=== PATIENT | female | born 2000 | race American Indian/Alaskan Native ===

== ENCOUNTER 2024-04-13 13:35 | Observation (INO) | payer MEDICAID, OTHER ==
[~2024-04-13] VITALS: Ht 160 cm; Wt 56.0 kg
[2024-04-13] MEDS ORDERED: LACTATED RINGER'S 1,000 ML IV ONE (15:00)
== END 2024-04-13 16:10 | disposition home or self-care (01) ==
LOC: LDRP 13:35
PROVIDERS: ADMIT Obstetrics & Gynecology; ATTEND Obstetrics & Gynecology
DX: O99.283 Endocrine, nutritional and metabolic diseases complicating pregnancy, third trimester (principal); E86.0 Dehydration; O62.9 Abnormality of forces of labor, unspecified; O26.893 Other specified pregnancy related conditions, third trimester; R10.9 Unspecified abdominal pain; Z3A.37 37 weeks gestation of pregnancy
CPT/HCPCS: 59025; 76818; 81002; 94760; G0378